=== PATIENT | female | born 1980 | race Caucasian/White ===

== ENCOUNTER 2018-06-09 13:42 | Inpatient (IN) | payer OTHER ==
[2018-06-09 14:30] VITALS: BMI 26.4
--- NOTE | 2018-06-09 14:48 | PN ---
HERACLIO Progress Note Note: PATIENT IS A 37 YEAR OLD FEMALE WITH PMH OF BIPOLAR DISORDER, ANXIETY AND SUBSTANCE ABUSE OF INJECTED HEROIN. PATIENT HAS PAIN TO LEFT FOOT AFTER SUSTAINING FALL 2 WEEKS AGO. PATIENT DID NOT GO TO ER AND DENIES HITTING HEAD ON FLOOR/OBJECT/FURNITURE. PATIENT REPORTS PAIN WAS IMPROVING BUT THEN TWISTED LEFT ANKLE YESTERDAY WHILE WALKING WHICH MADE PAIN WORSE. PATIENT DID NOT SEEK MEDICAL ATTENTION FOR SYMPTOMS. PAIN NON-RADIATING AND LEVEL 4/10. PAIN WORSENS WHEN PRESSURE APPLIED TO BOTTOM OF LEFT FOOT. OBJ: ALERT AND ORIENTED X 3 SKIN WARM AND DRY, + TRACK PIERRE CAR S1S2 RESP CTA BL EXT RIGHT FOOT: +FULL ROM, NO EDEMA, + PEDAL PULSE LEFT FOOT: + PEDAL PULSE, REDNESS AND +1 SWELLING. ROM OF LEFT FOOT LIMITED DUE TO PAIN A/P: LEFT FOOT PAIN/INJURY WILL TRANSFER TO [facility] ER FOR LEFT FOOT XRAY AND EVALUATION REPORT GIVEN TO DR. ZAVALA
--- NOTE | 2018-06-09 21:18 | HP ---
COWS - Scale Resting Pulse: 0= SD 80 or Below Sweatin=Flushed/Facial Moisture Restless Observation: 5= Unable to Sit Still Pupil Size: 1= Pupils >than Normal Bone or Joint Aches: 4=Acute Joint/Muscle Pain Runny Nose/ Eye Tearin= Constantly Teary/Runny GI Upset > 30mins: 3= Vomiting/Diarrhea Tremor Observation: 2= Slight Tremor Visible Yawning Observation: 0= None Anxiety or Irritability: 2=Irritable/Anxious Goose Flesh Skin: 0=Smooth Skin COWS Score: 23 Admission ROS S - [facility] Chief Complaint: seeking detox from heroin with c/o withdrawal sx's Allergies/Adverse Reactions: Allergies Allergy/AdvReac Type Severity Reaction Status Date / Time No Known Drug Allergies Allergy Verified 06/09/18 14:07 History of Present Illness: 37 Y.O FEMALE WITH HX OF POLY SUBSTANCE ABUSE HERE FOR DETOX FROM [facility]. CLIENT REPORTS SHE RECENTLY RELPASED 3 WEEKS AGO AFTER A 10 MONTH CLEAN PERIOD. SHE IS SELF REFERRED.SHE REPORTS BEING INCARCERATED FROM THE PERIOD OF 2016 TO 04/17/2018 AT [facility]. SHE IS KNOWN TO OTHER INPATIENT TXMENT PRIOR TO INCARCERATION. UTOX + FOR MANJINDER, FENTANYL, OPI, OXY, MTD, BZO. SHE REPORTS TAKING A SIP OF BOYFRIENDS HEROIN NOT TO FEEL SICK. SHE CURRENTLY RECIEVES RX XANAX BUT IS AWARE IT WILL NOT BE CONT HERE WHILE IN TXMENT. CLIENT VERBALIZED UNDERSTANDING. DENIES ANY MEDICAL HX. REPORTS MENTAL HEALTH HX/O BIPOLAR, ADHD, DEPRESSION. DENIES PAST/PRESENT SI/HI/ATTEMPTS, SEIZURE D/O. CLIENT WAS SENT TO [facility] EARLIER TODAY FOR C/O FOOT PAIN WITH RECENT INJURY. SHE HAS SINCE BEEN EVALUATED W/ NEG XRAY'S, LABS NOTED AND CLEARED FOR DETOX ADMISSION. RADIOLOGY Radiology Studies Ordered: Category Date Time Status FOOT-LEFT [RAD] Stat Radiology 06/09/18 16:22 Ordered LEG TIB/FIB-LEFT [RAD] Stat Radiology 06/09/18 16:22 Ordered TOE(S) LEFT [RAD] Stat Radiology 06/09/18 16:22 Ordered Medical Decision Making - Medical Decision Making *Reviewed vital signs, nursing notes, and prior visit documentation (if available). 37 y/o female complaining of left foot pain and swelling with ambulation. Possibly after IV drug injection or injury. Did not endorse systemic symptoms. Afebrile. Vitals unremarkable for tachycardia or hypotension. Foot grossly well appearing on exam. Suspect possible msk strain/sprain. D/D includes fracture, plantar fasciitis, thrombophlebitis, deep space infection. Will obtain plain films of the extremity, ESR, and CRP to further evaluate. CBC, CMP, blood cultures, and UPreg ordered by E. CBC unremarkable for anemia or leukocytosis. Low suspicion for bacteremia. CMP unremarkable for electrolyte derangement. LFTs not elevated. UPreg negative. *DC/Admit/Observation/Transfer Diagnosis at time of Disposition: Leg pain - Referrals Referrals: Jerald Quispe MD [Staff Physician] - [facility] at [place] [Provider Group] - Patient Instructions Printed Discharge Instructions: DI for Acute Pain -- Adult Additional Instructions: Your blood work and xrays did not show signs of infection or injury. Rest the foot. Try and keep it elevated. You can take over the counter Tylenol or Advil as needed for pain. Take as directed on the package insert. Do not exceed the recommended dosage. I have entered a referral for you to see a primary care physician at [facility] Internal Medicine at [place] primary care clinic. You will need to call to make an appointment in the next 2-4 days. The telephone number is [phone]. I have also placed a referral for you to follow up with Dr. Quispe, an orthopedic doctor. You will need to call to make an appointment. Go to the nearest emergency department if your condition worsens or you feel like you need additional emergency evaluation. Print Language: DANISH - Post Discharge Activity Exam Limitations: No Limitations - Ebola screening Have you traveled outside of the country in the last 21 days: No Have you had contact with anyone from an Ebola affected area: No Have you been sick,other than usual withdrawal symptoms: No Do you have a fever: No - Review of Systems Constitutional: Chills, Loss of Appetite, Malaise, Night Sweats, Changes in sleep EENT: reports: Tearing, Nose Congestion (WITH RUNNY NOSE) Respiratory: reports: Shortness of Breath (R/T ANXIETY) Cardiac: reports: No Symptoms Reported GI: reports: Nausea, Poor Appetite, Vomiting, Abdominal cramping : reports: No Symptoms Reported Musculoskeletal: reports: Back Pain, Joint Pain, Muscle Pain, Neck Pain Integumentary: reports: No Symptoms Reported Neuro: reports: No Symptoms reported Endocrine: reports: No Symptoms Reported Hematology: reports: No Symptoms Reported Psychiatric: reports: Anxious, Depressed Other Systems: Reviewed and Negative Patient History - Patient Medical History Hx Anemia: No Hx Asthma: No Hx Chronic Obstructive Pulmonary Disease (COPD): No Hx Cancer: No Hx Cardiac Disorders: No Hx Congestive Heart Failure: No Hx Hypertension: No Hx Hypercholesterolemia: No Hx Pacemaker: No HX Cerebrovascular Accident: No Hx Seizures: No Hx Dementia: No Hx Diabetes: No Hx Gastrointestinal Disorders: No Hx Liver Disease: No Hx Genitourinary Disorders: No Hx Sexually Transmitted Disorders: No Hx Renal Disease (ESRD): No Hx Thyroid Disease: No Hx Human Immunodeficiency Virus (HIV): No Hx Hepatitis C: No Hx Depression: Yes Hx Suicide Attempt: No Hx Bipolar Disorder: No Hx Schizophrenia: No Other Medical History: ANXIETY, BIPOLAR - Patient Surgical History Past Surgical History: Yes Hx Neurologic Surgery: No Hx Cataract Extraction: No Hx Cardiac Surgery: No Hx Lung Surgery: No Hx Breast Surgery: No Hx Breast Biopsy: No Hx Abdominal Surgery: No Hx Appendectomy: No Hx Cholecystectomy: No Hx Genitourinary Surgery: No Hx Section: No Hx Orthopedic Surgery: No Other Surgical History: TONSILECTOMY AT 10 Y/O Anesthesia Reaction: No - PPD History Previous Implant?: Yes Documented Results: Negative w/o proof Date: 08/13/15 PPD to be Administered?: Yes - Reproductive History Patient is a Female of Child Bearing Age (11 -55 yrs old): Yes Last Menstrual Period: 06/02/18 LMP comment: REG Patient : No ([facility] [place] - Smoking Cessation Smoking history: Current every day smoker Have you smoked in the past 12 months: Yes Aproximately how many cigarettes per day: 10 Cigars Per Day: 0 Hx Chewing Tobacco Use: No Initiated information on smoking cessation: Yes 'Breaking Loose' booklet given: 06/09/18 - Substance & Tx. History Hx Alcohol Use: No Hx Substance Use: Yes Substance Use Type: Cocaine, Heroin, Prescribed (XANAX) Hx Substance Use Treatment: Yes ([facility]) - Substances Abused Heroin Route: Injection Frequency: Daily Amount used: 8-9 bags Age of first use: 25 Date of Last Use: 06/09/18 Crack Route: Smoking Frequency: Daily Amount used: $20 Age of first use: 33 Date of Last Use: 06/09/18 Family Disease History - Family Disease History Family Disease History: Diabetes: Father (cad), Mother (RA), Heart Disease: Father, Other: Mother Admission Physical Exam [facility] - Vital Signs Vital Signs: Vital Signs - 24 hr 06/09/18 14:14 Temperature 98.1 F Pulse Rate 80 Respiratory 20 Rate Blood Pressure 117/77 - Physical General Appearance: Yes: Appropriately Dressed, Moderate Distress, Tremorous, Irritable, Sweating, Anxious HEENTM: Yes: EOMI, Normocephalic, Normal Voice, RYAN, Pharynx Normal, Nasal Congestion, Rhinorrhea, Other (CONGESTION/WATERY EYES) Respiratory: Yes: Chest Non-Tender, Lungs Clear, Normal Breath Sounds, No Respiratory Distress, No Accessory Muscle Use Neck: Yes: No masses,lesions,Nodules, Supple, Trachea in good position Breast: Yes: Breast Exam Deferred Cardiology: Yes: Regular Rhythm, Regular Rate, S1, S2 Abdominal: Yes: Non Tender, Soft, Increased Bowel Sounds Genitourinary: Yes: Other (NO C/O) Back: Yes: Normal Inspection Musculoskeletal: Yes: Other ([place] WITH LIMP 2/2 TO PAIN ON LEFT FOOT. FROM W/O LIMITATIONS NOTED TO BOTH ANKLES AND FOOT) Extremities: Yes: Normal Inspection, Normal Range of Motion, Non-Tender, Tremors Neurological: Yes: Fully Oriented, Alert, Motor Strength 5/5, Depressed Affect Integumentary: Yes: Clammy, Track Nguyen (TO ARMS WITH RESOLVING AREAS OF BRUSING /INFILTRATION) Lymphatic: Yes: Within Normal Limits - Diagnostic (1) Sedative, hypnotic or anxiolytic dependence, uncomplicated Current Visit: Yes Status: Chronic (2) Depressed affect Current Visit: Yes Status: Acute (3) Pain of left foot Current Visit: Yes Status: Acute (4) ADHD (attention deficit hyperactivity disorder) Current Visit: Yes Status: Chronic (5) Anxiety disorder Current Visit: Yes Status: Chronic (6) Cannabis abuse Current Visit: Yes Status: Chronic (7) Cocaine abuse Current Visit: Yes Status: Chronic (8) Depression Current Visit: Yes Status: Chronic Qualifiers: Depression Type: unspecified Qualified Code(s): F32.9 - Major depressive disorder, single episode, unspecified (9) Nicotine dependence Current Visit: Yes Status: Chronic Qualifiers: Nicotine product type: cigarettes Substance use status: uncomplicated Qualified Code(s): F17.210 - Nicotine dependence, cigarettes, uncomplicated (10) Opioid dependence with withdrawal Current Visit: Yes Status: Acute Cleared for Admission [facility] - Detox or Rehab [facility] Level of Care: Medically Managed Detox Regimen/Protocol: Methadone Claeared for Rehab Admission: No S Breath Alcohol Content Breath Alcohol Content: 0 Urine Pregancy Test - Result Urine Test Results: Negative- NO Line Present Urine Drug Screen - Results Drug Screen Negative: No Urine Drug Screen Results: MANJINDER-Cocaine, OPI-Opiates, BZO-Benzodiazepines, MTD- Methadone, OXY-Oxycodone, FEN-Fentanyl
[2018-06-09] MEDS ORDERED: ACETAMINOPHEN 325 MG TABLET (FP) PO PRN (21:23)
[2018-06-09] MEDS ORDERED: METHADONE HCL 10 MG TABLET (FOR DETOX USE ONLY) PO ONE ×2 (21:23→23:00)
[2018-06-09] MEDS ORDERED: LOPERAMIDE HCL 2 MG CAPSULE PO PRN (21:23)
[2018-06-09] MEDS ORDERED: MAG HYDROX/AL HYDROX/SIMETH 30 ML UNIT-DOSE CUP PO PRN (21:23)
[2018-06-09] MEDS ORDERED: MAGNESIUM CITRATE 300 ML BOTTLE PO PRN (21:23)
[2018-06-09] MEDS ORDERED: guaiFENesin/D-METHORPHAN HB 10 ML UNIT-DOSE CUPS PO PRN (21:23)
[2018-06-09] MEDS ORDERED: NICOTINE POLACRILEX 2 MG GUM BUC PRN (21:23)
[2018-06-09] MEDS ORDERED: MENTHOL/PHENOL 1 EACH UD MM PRN (21:23)
[2018-06-09] MEDS ORDERED: P-EPHED 60MG/TRIPROLIDI 2.5MG TABLET PO PRN (21:23)
[2018-06-09] MEDS ORDERED: MAGNESIUM HYDROX 2400MG/30ML ORAL SUSPENSION 30 ML CUP PO PRN (21:23)
[2018-06-09] MEDS ORDERED: MELATONIN 5 MG TABLETS PO PRN (22:00)
[2018-06-09] MEDS: IBUPROFEN 400 MG TABLET (FP) PO PRN (22:43)
[2018-06-09] MEDS: THIAMINE HCL 100 MG TABLET (FP) PO SCH (22:47)
[2018-06-10] MEDS ORDERED: METHADONE HCL 10 MG TABLET (FOR DETOX USE ONLY) PO ONE (10:00)
[2018-06-10] MEDS: diazePAM 5 MG TABLET PO PRN ×3 (10:00→20:20)
[2018-06-10] MEDS: NICOTINE 14 MG/24 HOURS TOPICAL PATCH TD SCH (10:01)
[2018-06-10] MEDS: PRENATAL VITAMINS W/ FOLIC ACID TABLET (FP) PO SCH (10:01)
--- NOTE | 2018-06-10 11:06 | PN ---
[facility] COWS - Scale Resting Pulse: 0= RI 80 or Below Sweatin=Flushed/Facial Moisture Restless Observation: 1= Difficult to Sit Still Pupil Size: 0= Normal to Room Light Bone or Joint Aches: 2= Severe Diffuse Aches Runny Nose/ Eye Tearin= Runny Nose/Eyes GI Upset > 30mins: 1= Stomach Cramp Tremor Observation of Outstretched Hands: 2= Slight Tremor Visible Yawning Observation: 2= >3x During Session Anxiety or Irritability: 2=Irritable/Anxious Goose Flesh Skin: 3=Piloerection COWS Score: 17 BHS Progress Note (SOAP) Subjective: chills sweats agitation anxiety body aches interrupted sleep Objective: 06/10/18 11:05 Vital Signs Temperature 97.7 F 06/10/18 09:10 Pulse Rate 69 06/10/18 09:10 Respiratory Rate 18 06/10/18 09:10 Blood Pressure 119/67 06/10/18 09:10 O2 Sat by Pulse Oximetry (%) labs drawn at [place] ED; labs WNL aaox3 lying in bed no acute distress Assessment: 06/10/18 11:12 withdrawal sx Plan: continue detox increase fluids
--- NOTE | 2018-06-10 11:59 | EKG ---
Test Reason : Blood Pressure : / mmHG Vent. Rate : 059 BPM Atrial Rate : 059 BPM P-R Int : 130 ms QRS Dur : 082 ms QT Int : 452 ms P-R-T Axes : 000 001 003 degrees QTc Int : 447 ms SINUS BRADYCARDIA NONSPECIFIC T WAVE ABNORMALITY ABNORMAL ECG WHEN COMPARED WITH ECG OF 28-MAY-2013 10:47, NONSPECIFIC T WAVE ABNORMALITY NOW EVIDENT IN ANTERIOR LEADS Confirmed by ISELA ECHAVARRIA, DEBBI ([id number]) on 06/10/2018 11:59:13 AM Referred By: Confirmed By:DEBBI WEISS MD
--- NOTE | 2018-06-10 14:07 | CONSULT ---
[facility] Psychiatric Consult - Data Date of interview: 06/10/18 Admission source: [facility] Identifying data: Patient is a 37 year old single female, without children, domiciled, unemployed, and is supported by food stamps. This is one of multiple admissions for patient. Patient admitted to for opiate dependence. Substance Abuse History: - Smoking Cessation. Smoking history: Current every day smoker. Have you smoked in the past 12 months: Yes. Aproximately how many cigarettes per day: 10. Cigars Per Day: 0. Hx Chewing Tobacco Use: No. Initiated information on smoking cessation: Yes. 'Breaking Loose' booklet given : 06/09/18. - Substance & Tx. History. Hx Alcohol Use: No. Hx Substance Use: Yes. Substance Use Type: Cocaine, Heroin, Prescribed (XANAX). Hx Substance Use Treatment: Yes ([facility]). - Substances Abused. Heroin. Route: Injection. Frequency: Daily. Amount used: 8-9 bags. Age of first use: 25. Date of Last Use: 06/09/18. Crack. Route: Smoking. Frequency: Daily. Amount used : $20. Age of first use: 33. Date of Last Use: 06/09/18 Medical History: Tonsilectomy Psychiatric History: Patient's first psychiatric contact was as a child. She was diagnosed with ADHD. She saw a psychiatrist for several years as a child but was not prescribed medications. Current outpatient psychiatric care is provided at [place] in [facility]. Diagnosis of bipolar disorder. She is currently prescribed lamictal 150mg BID + Adderall 30mg BID + Xanax 2mg TID. She last took her medications when she was incarcerated in April. Patient denies h/o suicide attempt. Patient is currently complaining of anxiety. She reports h/o accepting gabapentin TID (unknown dose). Pharmacy claims indicate h/o xanax, adderal, and ambien prescription. Physical/Sexual Abuse/Trauma History: denies. Mental Status Exam - Mental Status Exam Alert and Oriented to: Time, Place, Person Cognitive Function: Good Patient Appearance: Well Groomed Mood: Anxious Affect: Mood Congruent Patient Behavior: Restless, Cooperative Speech Pattern: Appropriate Voice Loudness: Normal Thought Process: Intact, Goal Oriented Thought Disorder: Not Present Hallucinations: Denies Suicidal Ideation: Denies Homicidal Ideation: Denies Insight/Judgement: Poor Sleep: Fair Appetite: Fair Muscle strength/Tone: Normal Gait/Station: Normal Psychiatric Findings - Problem List ([place] 1, 2,3) (1) Anxiety disorder Current Visit: Yes Status: Chronic (2) Opioid dependence with withdrawal Current Visit: Yes Status: Acute (3) Sedative, hypnotic or anxiolytic dependence, uncomplicated Current Visit: Yes Status: Acute (4) ADHD (attention deficit hyperactivity disorder) Current Visit: No Status: Chronic - Initial Treatment Plan Initial Treatment Plan: Psychoeducation provided. Detoxification in progress. Vistaril 50mg q6h ordered for anxiety. Benefits and side effects discussed. Verbal consent given.
[2018-06-10] MEDS: THIAMINE HCL 100 MG TABLET (FP) PO SCH (22:27)
[2018-06-11] MEDS: diazePAM 5 MG TABLET PO PRN ×4 (01:25→22:24)
[2018-06-11] MEDS ORDERED: cloNIDine HCL 0.1 MG TABLET PO ONE (08:58)
[2018-06-11] MEDS ORDERED: ONDANSETRON *ODT* 4 MG TABLET SL PRN (08:58)
[2018-06-11] MEDS ORDERED: METHADONE HCL 5 MG TABLET (FOR DETOX USE ONLY) PO ONE (10:00)
--- NOTE | 2018-06-11 10:18 | PN ---
[facility] COWS - Scale Resting Pulse: 1= SD 81-100 Sweatin=Flushed/Facial Moisture Restless Observation: 1= Difficult to Sit Still Pupil Size: 1= Pupils >than Normal Bone or Joint Aches: 2= Severe Diffuse Aches Runny Nose/ Eye Tearin= Runny Nose/Eyes GI Upset > 30mins: 3= Vomiting/Diarrhea Tremor Observation of Outstretched Hands: 1= Tremor [place], Not Seen Yawning Observation: 1= 1-2x During Session Anxiety or Irritability: 2=Irritable/Anxious Goose Flesh Skin: 0=Smooth Skin COWS Score: 16 [facility] Progress Note (SOAP) Subjective: c/o body aches, joint pain, nausea and vomiting, fatigue Objective: 06/11/18 10:15 Vital Signs Temperature 96.7 F L 06/11/18 09:54 Pulse Rate 87 06/11/18 09:54 Respiratory Rate 18 06/11/18 09:54 Blood Pressure 116/69 06/11/18 09:54 O2 Sat by Pulse Oximetry (%) Laboratory Last Values RPR Titer Nonreactive (NONREACTIVE) 06/10/18 06:00 Aox3 no distress, diaphoresis no adventitious breath sounds full ROM, + back pain ABD non-tender, non-distended withdrawal sx Plan: fluids as tolerated flexeril PRN zofran PRN one time dose clonidine 0.1 mg continue detox continue to monitor Assessment: 06/11/18 10:16 withdrawal sx
[2018-06-11] MEDS: NICOTINE 14 MG/24 HOURS TOPICAL PATCH TD SCH (10:25)
[2018-06-11] MEDS: PRENATAL VITAMINS W/ FOLIC ACID TABLET (FP) PO SCH (10:25)
[2018-06-11] MEDS: CYCLOBENZAPRINE HCL 5 MG TABLET PO SCH ×2 (14:40→22:25)
[2018-06-11 17:32] LABS: URINE APPEARANCE CLEAR; URINE BILIRUBIN NEGATIVE (<2.0 mg/dL); URINE COLOR YELLOW; URINE GLUCOSE (UA) NEGATIVE (NEGATIVE); URINE KETONE NEGATIVE (NEGATIVE); URINE LEUK ESTERASE NEGATIVE (NEGATIVE); URINE NITRITE NEGATIVE (NEGATIVE); URINE PROTEIN NEGATIVE (NEGATIVE); URINE UROBILINOGEN NEGATIVE mg/dL (0.2-1.0)
[2018-06-11] MEDS: THIAMINE HCL 100 MG TABLET (FP) PO SCH (22:24)
[2018-06-12] MEDS: CYCLOBENZAPRINE HCL 5 MG TABLET PO SCH ×3 (05:26→22:12)
[2018-06-12] MEDS: diazePAM 5 MG TABLET PO PRN ×2 (05:26→10:27)
[2018-06-12] MEDS ORDERED: METHADONE HCL 5 MG TABLET (FOR DETOX USE ONLY) PO ONE (10:00)
[2018-06-12] MEDS: PRENATAL VITAMINS W/ FOLIC ACID TABLET (FP) PO SCH (10:27)
[2018-06-12] MEDS: NICOTINE 14 MG/24 HOURS TOPICAL PATCH TD SCH (10:28)
[2018-06-12] MEDS: IBUPROFEN 400 MG TABLET (FP) PO PRN ×2 (10:31→20:25)
--- NOTE | 2018-06-12 13:33 | PN ---
[facility] Progress Note Note: PATIENT C/O ANXIETY, STOMACH CRAMPS AND BODYACHES. Laboratory Tests 06/10/18 06/11/18 06:00 14:30 Urine Color Yellow Urine Appearance Clear Urine pH 8.0 Ur Specific [place] 1.013 Urine Protein Negative Urine Glucose (UA) Negative Urine Ketones Negative Urine Blood Negative Urine Nitrite Negative Urine Bilirubin Negative Urine Urobilinogen Negative Ur Leukocyte Esterase Negative RPR Titer Nonreactive Laboratory Tests 06/10/18 06/11/18 06:00 14:30 Urine Color Yellow Urine Appearance Clear Urine pH 8.0 Ur Specific [place] 1.013 Urine Protein Negative Urine Glucose (UA) Negative Urine Ketones Negative Urine Blood Negative Urine Nitrite Negative Urine Bilirubin Negative Urine Urobilinogen Negative Ur Leukocyte Esterase Negative RPR Titer Nonreactive Vital Signs Temperature 97.7 F 06/12/18 09:36 Pulse Rate 68 06/12/18 09:36 Respiratory Rate 16 06/12/18 09:36 Blood Pressure 120/84 06/12/18 09:36 O2 Sat by Pulse Oximetry (%) ALERT AND ORIENTED SKIN WARM AND DRY CAR S1S2 RESP CTA BL EXT MILD TREMORS WITHDRAWAL SYNDROME CONTINUE TO MONITOR CLINICALLY DETOX CONTINUED ENCOURAGE ORAL FLUIDS
[2018-06-12] MEDS: hydrOXYzine PAMOATE 50 MG CAPSULE (FP) PO PRN (22:14)
[2018-06-12] MEDS: THIAMINE HCL 100 MG TABLET (FP) PO SCH (23:31)
[2018-06-13] MEDS: CYCLOBENZAPRINE HCL 5 MG TABLET PO SCH ×3 (05:50→22:06)
[2018-06-13] MEDS: IBUPROFEN 400 MG TABLET (FP) PO PRN ×2 (05:51→16:33)
[2018-06-13] MEDS ORDERED: METHADONE HCL 10 MG TABLET (FOR DETOX USE ONLY) PO ONE (10:00)
[2018-06-13] MEDS: PRENATAL VITAMINS W/ FOLIC ACID TABLET (FP) PO SCH (10:14)
[2018-06-13] MEDS: NICOTINE 14 MG/24 HOURS TOPICAL PATCH TD SCH (10:14)
[2018-06-13] MEDS: hydrOXYzine PAMOATE 50 MG CAPSULE (FP) PO PRN ×2 (11:17→22:08)
--- NOTE | 2018-06-13 13:35 | PN ---
[facility] Progress Note Note: PATIENT CONTINUES WITH DETOX TREATMENT. C/O CHILLS AND ANXIETY. DENIES HEADACHE AND N/V/D Vital Signs Temperature 97.3 F L 06/13/18 10:39 Pulse Rate 69 06/13/18 10:39 Respiratory Rate 16 06/13/18 10:39 Blood Pressure 116/65 06/13/18 10:39 O2 Sat by Pulse Oximetry (%) Laboratory Tests 06/10/18 06/11/18 06:00 14:30 Urine Color Yellow Urine Appearance Clear Urine pH 8.0 Ur Specific [place] 1.013 Urine Protein Negative Urine Glucose (UA) Negative Urine Ketones Negative Urine Blood Negative Urine Nitrite Negative Urine Bilirubin Negative Urine Urobilinogen Negative Ur Leukocyte Esterase Negative RPR Titer Nonreactive SKIN: +GOOSEFLESH ALERT AND ORIENTED X 3 ANXIOUS AMB AD MORALES A/P: WITHDRAWAL SYNDROME CONTINUE DETOX ORAL FLUIDS CONTINUE TO MONITOR
--- NOTE | 2018-06-13 17:18 | PN ---
[facility] Progress Note Note: Pt requesting to have warm compress applied to leg sprain. Advised pt that cold compress is better to manage the sprain. pt to REST leg
[2018-06-13] MEDS: THIAMINE HCL 100 MG TABLET (FP) PO SCH (22:07)
[2018-06-14] MEDS: IBUPROFEN 400 MG TABLET (FP) PO PRN (05:23)
[2018-06-14] MEDS: CYCLOBENZAPRINE HCL 5 MG TABLET PO SCH (05:25)
[2018-06-14] MEDS ORDERED: METHADONE HCL 5 MG TABLET (FOR DETOX USE ONLY) PO ONE (06:00)
[2018-06-14 06:26] VITALS: BP 133/78; PULSE 67; TEMP 97.5
--- NOTE | 2018-06-14 11:26 | DS ---
[facility] Detox Discharge Summary Admission Date: 06/09/18 Discharge Date: 06/14/18 - History Present History: Opioid Dependence Additional Comments: 37 years old female admitted on 06/09/18 for opiate withdrawal sx completed opiate detox regimen tolerated well denies opiate withdrawal sx alert oriented x 3 no acute distress aftercare [facility] [place] - Physical Exam Results Vital Signs: Vital Signs Temperature 97.5 F L 06/14/18 06:00 Pulse Rate 67 06/14/18 06:00 Respiratory Rate 16 06/14/18 06:00 Blood Pressure 133/78 06/14/18 06:00 O2 Sat by Pulse Oximetry (%) Pertinent Admission Physical Exam Findings: opiate withdrawal sx Vital Signs Temperature 97.5 F L 06/14/18 06:00 Pulse Rate 67 06/14/18 06:00 Respiratory Rate 16 06/14/18 06:00 Blood Pressure 133/78 06/14/18 06:00 O2 Sat by Pulse Oximetry (%) Laboratory Last Values Urine Color Yellow 06/11/18 14:30 Urine Appearance Clear 06/11/18 14:30 Urine pH 8.0 (5.0-8.0) 06/11/18 14:30 Ur Specific [place] 1.013 (1.004-1.035) 06/11/18 14:30 Urine Protein Negative (NEGATIVE) 06/11/18 14:30 Urine Glucose (UA) Negative (NEGATIVE) 06/11/18 14:30 Urine Ketones Negative (NEGATIVE) 06/11/18 14:30 Urine Blood Negative (NEGATIVE) 06/11/18 14:30 Urine Nitrite Negative (NEGATIVE) 06/11/18 14:30 Urine Bilirubin Negative (<2.0 mg/dL) 06/11/18 14:30 Urine Urobilinogen Negative mg/dL (0.2-1.0) 06/11/18 14:30 Ur Leukocyte Esterase Negative (NEGATIVE) 06/11/18 14:30 RPR Titer Nonreactive (NONREACTIVE) 06/10/18 06:00 lab noted - Treatment Hospital Course: Detox Protocol Followed, Detoxed Safely, Responded well, Discharged Condition Good, Rehab Referral Accepted Patient has Accepted a Rehab Referral to: [facility] [place] - Medication Discharge Medications: Ambulatory Orders Unobtainable 06/09/18 - Diagnosis (1) Opioid dependence with withdrawal Status: Acute (2) Nicotine dependence Status: Acute Qualifiers: Nicotine product type: cigarettes Substance use status: in withdrawal Qualified Code(s): F17.213 - Nicotine dependence, cigarettes, with withdrawal (3) Sedative, hypnotic or anxiolytic dependence with withdrawal, uncomplicated Status: Acute - AMA Did Patient Leave Against Medical Advice: No
== END 2018-06-14 09:21 | disposition home or self-care (01) | DRG 773 ==
LOC: YASAS 13:42 → Y6N 21:39
PROC: HZ2ZZZZ Detoxification Services for Substance Abuse Treatment (ICD-10-PCS; principal; 2018-06-09)
DX: F11.23 Opioid dependence with withdrawal (principal); F13.230 Sedative, hypnotic or anxiolytic dependence with withdrawal, uncomplicated; F14.10 Cocaine abuse, uncomplicated; F12.10 Cannabis abuse, uncomplicated; F17.213 Nicotine dependence, cigarettes, with withdrawal; F31.9 Bipolar disorder, unspecified; F41.9 Anxiety disorder, unspecified; F90.9 Attention-deficit hyperactivity disorder, unspecified type; F32.9 Major depressive disorder, single episode, unspecified; M79.672 Pain in left foot
CPT/HCPCS: 36415; 81003; 86593; 93005; 93010; J0735

== ENCOUNTER 2018-06-09 15:25 | Emergency (ER) | payer OTHER ==
--- NOTE | 2018-06-09 15:39 | PDOC ---
Rapid Medical Evaluation Time Seen by Provider: 06/09/18 15:37 Medical Evaluation: Allergies Allergy/AdvReac Type Severity Reaction Status Date / Time No Known Drug Allergies Allergy Verified 06/09/18 14:07 I have performed a brief in-person evaluation of this patient. The patient presents with a chief complaint of: from [address] [facility] for heroin and crack. Shot up in her left leg and is c/o left leg swelling and pain for the past 3 weeks Pertinent physical exam findings: left leg and foot wrapped I have ordered the following: labs, hcg The patient will proceed to the ED for further evaluation. Discharge Disposition - Diagnosis Leg pain - Referrals - Patient Instructions - Post Discharge Activity
[2018-06-09 15:43] VITALS: TEMP 98.2; BMI 26.4
[2018-06-09 16:13] LABS: BASO % 0.8 % (0-2.0); EOS % 1.1 % (0-4.5); HEMATOCRIT 39.5 % (32.4-45.2); HEMOGLOBIN 13.2 GM/dL (10.7-15.3); LYMPH % 28.4 % (8-40); MCH 29.2 pg (25.7-33.7); MCHC 33.4 g/dl (32.0-36.0); MEAN CELL VOLUME 87.2 fl (80-96); MEAN PLT VOLUME 8.1 fl (7.5-11.1); MONO % 4.7 % (3.8-10.2); PLATELET COUNT 385 K/MM3 (134-434); RBC 4.53 M/mm3 (3.60-5.2); RDW 13.7 % (11.6-15.6); WHITE BLOOD COUNT 6.5 K/mm3 (4.0-10.0)
[2018-06-09 16:39] LABS: ALBUMIN 3.5 g/dl (3.4-5.0); ALK PHOS 58 U/L (45-117); ANION GAP 4 MMOL/L (8-16); BILIRUBIN,TOTAL 0.5 mg/dL (0.2-1); BLOOD UREA NITROGEN 8 mg/dL (7-18); CALCIUM 9.2 mg/dL (8.5-10.1); CHLORIDE 101 mmol/L (98-107); CO2 29 mmol/L (21-32); CREATININE 0.7 mg/dL (0.55-1.3); GLUCOSE,RANDOM 83 mg/dL (74-106); POTASSIUM 4.2 mmol/L (3.5-5.1); SGOT/AST 48 U/L (15-37); SGPT/ALT 52 U/L (13-61); SODIUM 134 mmol/L (136-145); TOT PROT 7.6 g/dl (6.4-8.2)
--- NOTE | 2018-06-09 17:01 | PDOC ---
History of Present Illness - General Chief Complaint: Edema Stated Complaint: Edema Time Seen by Provider: 06/09/18 15:37 History Source: Patient, Old Records Exam Limitations: No Limitations - History of Present Illness Initial Comments: 37 y/o female presenting to [facility] ER via ambulance from [facility] complaining of pain and swelling to dorsum of left foot. Symptoms started three weeks ago when the pt injected heroin into the area; believes the injection may have extravasated. Since that time, the pt reports pain, intermittent swelling, and difficulty weight bearing. Denies fevers, chills, diaphoresis, superficial wounds, rash, lymphatic streaking, bleeding, or purulent discharge. Pt denies trauma in interview, however E and [facility] notes state pt reported falling and twisting her ankle recently. Pt endorses longstanding history of heroin IV injection. Last used this morning prior to self-presenting to detox. Social: - EtOH: denies - Tobacco: smokes 0.5 packs per day - Street: Heroin IV injection Medical Hx: - ADHD, managed with Adderall q.day - Bipolar, managed with Lamotrigine q.day - Anxiety, managed with Alprazolam TID Surgical Hx: - Tonsillectomy Past History - Past Medical History Allergies/Adverse Reactions: Allergies Allergy/AdvReac Type Severity Reaction Status Date / Time No Known Drug Allergies Allergy Verified 06/09/18 14:07 Home Medications: Ambulatory Orders Unobtainable 06/09/18 Anemia: No Asthma: No Cancer: No Cardiac Disorders: No CVA: No COPD: No CHF: No DVT: No Dementia: No Diabetes: No GI Disorders: No Disorders: No HTN: No Hypercholesterolemia: No Kidney Stones: No Liver Disease: No Seizures: Yes (drug related seizures-last episode was in 02/2018) Thyroid Disease: No - Surgical History Abdominal Surgery: No Appendectomy: No Cardiac Surgery: No Cholecystectomy: No Lung Surgery: No Neurologic Surgery: No Orthopedic Surgery: No - Reproductive History PID: No - Immunization History Immunization Up to Date: Yes - Suicide/Smoking/Psychosocial Hx Smoking History: Never smoked Have you smoked in the past 12 months: Yes Number of Cigarettes Smoked Daily: 20 Cigars Per Day: 0 Information on smoking cessation initiated: No 'Breaking Loose' booklet given: 01/02/16 Hx Alcohol Use: No Drug/Substance Use Hx: No Substance Use Type: None Hx Substance Use Treatment: Yes Review of Systems - Review of Systems Able to Perform ROS?: Yes Comments:: In addition to that documented in the HPI above, the additional ROS was obtained : Constitutional: Denies fevers or chills Eyes: Denies vision changes ENMT: Denies sore throat CV: Denies chest pain Resp: Denies SOB GI: Denies vomiting or diarrhea *Physical Exam - Vital Signs Last Vital Signs Temp Pulse Resp BP Pulse Ox 98.2 F 78 16 108/59 L 100 06/09/18 15:38 06/09/18 15:38 06/09/18 15:38 06/09/18 15:38 06/09/18 15:38 - Physical Exam Comments: Constitutional: Well-developed, well-nourished female in no acute distress or obvious discomfort. Found semi-fowlers in hospital bed. Alert and oriented x4. Answered all questions appropriately and completely. Speech was non-labored, non -pressured. HEENT: Normocephalic. No obvious external signs of trauma. Hearing grossly normal. No nasal discharge. Neck is supple, trachea is midline. Cardiovascular: Regular rate and regular rhythm. No murmur, rubs, clicks, or gallops. Peripheral pulses: Radial pulses full. Respiratory: Breathing unlabored. Equal chest rise and fall. Clear to auscultation bilaterally. No stridor, no wheezing, no rhonchi. Neuro: Alert and oriented. Moving all four extremities spontaneously. Ambulating throughout department without assistance. MSK / Skin: Left foot subjectively tender to active and passive range of motion along dorsum. Pain improves with direct palpation. Foot is grossly normal and symmetrical when compared to right; no wounds, bruising, bleeding, or discharge. Globally, skin is warm, dry, and intact. Psych: Affect: appropriate. Mood: normal. ED Treatment Course - LABORATORY CBC & Chemistry Diagram: 06/09/18 16:05 06/09/18 16:02 - ADDITIONAL ORDERS Additional order review: Laboratory Results 06/09/18 16:02 Sodium 134 L Potassium 4.2 Chloride 101 Carbon Dioxide 29 Anion Gap 4 L BUN 8 Creatinine 0.7 Creat Clearance w eGFR > 60 Random Glucose 83 Calcium 9.2 Total Bilirubin 0.5 AST 48 H ALT 52 Alkaline Phosphatase 58 Total Protein 7.6 Albumin 3.5 06/09/18 16:05 RBC 4.53 MCV 87.2 MCHC 33.4 RDW 13.7 MPV 8.1 Neutrophils % 65.0 D Lymphocytes % 28.4 D Monocytes % 4.7 Eosinophils % 1.1 Basophils % 0.8 - RADIOLOGY Radiology Studies Ordered: Category Date Time Status FOOT-LEFT [RAD] Stat Radiology 06/09/18 16:22 Ordered LEG TIB/FIB-LEFT [RAD] Stat Radiology 06/09/18 16:22 Ordered TOE(S) LEFT [RAD] Stat Radiology 06/09/18 16:22 Ordered Medical Decision Making - Medical Decision Making *Reviewed vital signs, nursing notes, and prior visit documentation (if available). 37 y/o female complaining of left foot pain and swelling with ambulation. Possibly after IV drug injection or injury. Did not endorse systemic symptoms. Afebrile. Vitals unremarkable for tachycardia or hypotension. Foot grossly well appearing on exam. Suspect possible msk strain/sprain. D/D includes fracture, plantar fasciitis, thrombophlebitis, deep space infection. Will obtain plain films of the extremity, ESR, and CRP to further evaluate. CBC, CMP, blood cultures, and UPreg ordered by RME. CBC unremarkable for anemia or leukocytosis. Low suspicion for bacteremia. CMP unremarkable for electrolyte derangement. LFTs not elevated. UPreg negative. Plain films of left foot and left tib/fib unremarkable for fracture or evidence of osteomyelitis. Suspect pts pain is mild msk pain. Suggested alternating hot and cold compresses with resting and elevation of the foot. Discussed imaging and laboratory results with pt. Answered all questions. Provided return precautions. Pt expressed verbal understanding and agreement with plan to discharge back to [facility] with outpatient follow up. Provided orthopedic referral. *DC/Admit/Observation/Transfer Diagnosis at time of Disposition: Leg pain - Discharge Dispostion Disposition: I.P. ALCOHOL/SUBS ABUSE REHAB Condition at time of disposition: Stable - Referrals Referrals: Jerald Quispe MD [Staff Physician] - [facility] at [place] [Provider Group] - Patient Instructions Printed Discharge Instructions: DI for Acute Pain -- Adult Additional Instructions: Your blood work and xrays did not show signs of infection or injury. Rest the foot. Try and keep it elevated. You can take over the counter Tylenol or Advil as needed for pain. Take as directed on the package insert. Do not exceed the recommended dosage. I have entered a referral for you to see a primary care physician at [facility] Internal Medicine at [facility]. You will need to call to make an appointment in the next 2-4 days. The telephone number is [phone]. I have also placed a referral for you to follow up with Dr. Quispe, an orthopedic doctor. You will need to call to make an appointment. Go to the nearest emergency department if your condition worsens or you feel like you need additional emergency evaluation. Print Language: GERMAN - Post Discharge Activity
--- NOTE | 2018-06-09 17:25 | PDOC ---
Attending Attestation - Resident Resident Name: Sher Delarosa - ED Attending Attestation I have performed the following: I have examined & evaluated the patient, The case was reviewed & discussed with the resident, I agree w/resident's findings & plan, Exceptions are as noted - HPI HPI: 06/09/18 17:2 37-year-old female seen at intake at [facility] detox and was noted to have foot pain. She did state that she had injected heroin into her foot several weeks ago and since then she's had intermittent pain She was brought in by ambulance from [facility] for x-rays and further evaluation - Physicial Exam PE: 06/09/18 18:15 37 yo female comes from [facility] for eval of left foot pain head ncat neck no jvd,no bruits lungs cta b/l cvs [id number] abd flat,nontender extremities : there is a healing eschar on the lateral malleolus on her left ankle ,otherwise no erythema,no induration,no open wounds.She has c/o some discomfort to the dorsal surface of her left foot when weight bearing. Putting pressure on the area actually makes it better -good dt and pt pulses,cap refill <2 sec,skin warm and dry. neuro axox3,ambulatory - Medical Decision Making 06/09/18 17:56 cbc shows no leukocytosis chemistries are unremarkable negative preg test 06/09/18 18:26 radiographs no fx,no evidence of osteo discharge back to [facility]
[2018-06-09 19:16] VITALS: BP 119/78; PULSE 86
== END 2018-06-09 21:02 | disposition other institution (70) ==
LOC: JER 15:25
DX: M79.672 Pain in left foot (principal); G40.509 Epileptic seizures related to external causes, not intractable, without status epilepticus; F10.20 Alcohol dependence, uncomplicated; F14.20 Cocaine dependence, uncomplicated; F12.10 Cannabis abuse, uncomplicated; F17.200 Nicotine dependence, unspecified, uncomplicated; F90.9 Attention-deficit hyperactivity disorder, unspecified type; F31.9 Bipolar disorder, unspecified; F41.9 Anxiety disorder, unspecified
CPT/HCPCS: 36415; 73590-TC-LT-FY; 73630-TC-LT; 80053; 84703; 85025; 85651; 86140; 87040; 99285-25